=== PATIENT | male | born 1990 | race Caucasian/White ===

== ENCOUNTER 2020-02-24 21:31 | Emergency (ER) | payer OTHER ==
[~2020-02-24] VITALS: Ht 172.7 cm; Wt 86.2 kg
--- NOTE | 2020-02-24 21:35 | NUR ---
ED Nurse Note: Patient brought in by ambulance [id number] from [address] streets for possible overdose. Per EMS, pt was found unresponsive in his car with pinpoint pupils. EMS administered 4mg intranasal narcan and 2mg IV Narcan prior to arrival. Patient aao x 4 and ambulatory upon arrival. Patient VSS stable. EMS inserted 18g IV on Left AC prior to arrival, patent and flushing, blood drawn and sent to lab. No acute distress noted. [employer] at bedside.
[2020-02-24 21:45] VITALS: BP 131/64
--- NOTE | 2020-02-24 22:15 | Diagnostic Imaging Report ---
EXAM: CT Head Without Intravenous Contrast CLINICAL HISTORY: H/A TECHNIQUE: Axial computed tomography images of the head/brain without intravenous contrast. CTDI is 53.4 mGy and DLP is 993.2 mGy-cm. One or more of the following dose reduction techniques were used: automated exposure control, adjustment of the mA and/or kV according to patient size, use of iterative reconstruction technique. COMPARISON: No relevant prior studies available. FINDINGS: Brain: No hemorrhage. No edema. Ventricles: No ventriculomegaly. Bones/joints: No acute fracture. Soft tissues: Unremarkable. Sinuses: No acute sinusitis. Mastoid air cells: No mastoid effusion. IMPRESSION: No acute intracranial process.
[2020-02-24 22:17] LABS: ANION GAP 11 mmol/L (5-15); BASOPHILS % (AUTO) 1.2 % (0.0-2.0); BLOOD UREA NITROGEN 10 mg/dL (7-18); CALCIUM 8.3 MG/DL (8.5-10.1); CARBON DIOXIDE 28 MMOL/L (21-32); CHLORIDE 103 MMOL/L (98-107); CREATININE 1.3 MG/DL (0.55-1.30); EOSINOPHILS % (AUTO) 4.1 % (0.0-3.0); HEMATOCRIT 42.1 % (42.0-52.0); HEMOGLOBIN 15.3 G/DL (14.2-18.0); LYMPHOCYTES % (AUTO) 15.4 % (20.0-45.0); MEAN CORPUSCULAR VOLUME 85 FL (80-99); MONOCYTES % (AUTO) 5.4 % (1.0-10.0); PLATELET COUNT 276 K/UL (150-450); RED BLOOD COUNT 4.97 M/UL (4.70-6.10); RED CELL DISTRIBUTION WIDTH 12.4 % (11.6-14.8); SODIUM 142 MMOL/L (136-145)
[2020-02-24 22:21] LABS: ALANINE AMINOTRANSFERASE 45 U/L (12-78); ALBUMIN 4.2 G/DL (3.4-5.0); ALBUMIN/GLOBULIN RATIO 1.2 (1.0-2.7); ALKALINE PHOSPHATASE 59 U/L (46-116); ASPARTATE AMINO TRANSFERASE 20 U/L (15-37); BILIRUBIN,TOTAL 0.3 MG/DL (0.2-1.0)
--- NOTE | 2020-02-24 22:57 | NUR ---
ED Nurse Note: [employer] at bedside
--- NOTE | 2020-02-24 23:11 | NUR ---
ED Nurse Note: Urine collected.
[2020-02-24] MEDS ORDERED: NARCAN4 MG NS (23:21)
--- NOTE | 2020-02-24 23:21 | Emergency Room Report ---
History of Present Illness General Chief Complaint: Overdose Source: Patient Present Illness HPI 29-year-old male PMHx previous heroin/meth/marijuana abuse BIBA with PD with c/o AMS. Patient was found unresponsive in his car. Accucheck was normal. No signs of trauma. EMS gave narcan 6mg prior to arrival. Patient states that this has never happened to him before. States that he has anxiety and usually takes xanax that he gets "from a friend" which is not prescribed to him. Denies alcohol use. Denies RAMOS, photophobia, neck/back/chest/abd pain, nausea, vomiting, or other symptoms The patient's symptoms were gradual onset, severity was moderate, duration since 1 day. PD Quality: confused Past medical history: previous opiate dependence -- sober 2 years Past surgical history: childhood hernia repair Smoking: ++VAPE Alcohol use: [ Denies] Drug use: ++marijuan Review of systems: CONST: No fevers or chills, No night sweats PULMONARY: No productive cough, No shortness of breath CARDIAC: No chest pain, No palpitations GI: No vomiting, No diarrhea , No melena_or_BRBPR : No dysuria, No hematuria, No discharge NEURO: No new_focal_weakness_or_numbness, No confusion, No vision changes 14 point Review of Systems is otherwise negative except per HPI Physical Exam: GENERAL: Awake_alert_ nontoxic, no acute distress Spo2 100% on RA -normal EYES: Extraocular muscles are intact. Conjunctivae clear. Lids without swelling. No nystagmus ENT: External nose and ear normal_in_appearance. Oropharynx clear. Head_atraumatic, Moist_oral_mucosa NECK: No JVD. No meningismus. No thyromegaly. Supple. Trachea midline RESP: Normal respiratory effort. Symmetric rise. No stridor. Cl ear_to_auscultation_No_rales_No_wheezes CARDIAC: Tachy rate and regular rhytm. No_significant pedal edema. ABDOMEN: Soft. Nondistended. Nontender_No_rebound_or_guarding. MSK: Normal muscle tone, without rigidity. Extremities without asymmetric deformity or swelling. SKIN: Warm and dry. No visible cyanosis or pallor NEUROLOGIC: Alert, oriented x3. Motor_and_sensation_grossly_intact. No truncal ataxia. Gait_normal Psych: Normal mood and affect, normal judgment and insight - COORDINATION OF CARE Case was discussed with: Patient Any labs and imaging that were ordered were interpreted as part of the medical decision making: Medical Decision Making/Plan: Differential diagnosis includes delusions, paranoid schizophrenia, drug abuse, drug intoxication, drug overdose, among others. After receiving narcan, patient is AOx4, GCS 15. No neuro deficits. The patient denies any suicide attempt, overdose, or ingestion. They exhibit no signs of any toxic syndrome or drug / alcohol withdrawal. Labs were ordered for evaluation, and results are reassuring with no evidence of occult overdose, or severe metabolic derangement. UDS was positive for benzos and marijuana. Patient had increased WBC count, but suspect this is likely reactive 2/2 drug abuse. PD report filed. DMV report filed. CT head negative. The patient was observed for a period of time of 3-4 hrs in the ED with serial neurologic exams. After serial neurologic exams in the emergency department, the patient remains clinically sober. They have no focal neurologic deficits and were able to ambulate with a steady gait without assistance. The patients presentation seems to be consistent with Benzo diazepine overdose. Suspect concomitant synthetic opiate OD which is why he responded well to narcan given prior to arrival to ED. Patient was counseled not to take drugs off the street and seek official psych care. Will prescribe narcan to use in case of emergencies Pertinent results reviewed with the patient. I educated the patient on the current treatment plan including the risks, benefits, and alternatives. I also discussed the extent and limitations of the current evaluation. The patient expressed understanding and agreement with plan. I recommended PMD follow-up within 1-2 days. Also advised that the patient return to the Emergency Department as soon as possible if they experience any new, persistent, or worsening symptoms. 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 Rhythm: Sinus tachycardia Rate: 108 bpm QTc: 450 Morphology: No_significant_ST_elevations_or_depressions, No STEMI Impression: Sinus tachycardia. Normal axis. Normal intervals. Rhythm Strip Diag. Results Rhythm Strip Time: 23:43 EP Interpretation: yes Rate: 88 Rhythm: NSR, no PVC's, no ectopy CT/MRI/US Diagnostic Results CT/MRI/US Diagnostic Results : Impression CT Head Without Intravenous Contrast FINDINGS: Brain: No hemorrhage. No edema. Ventricles: No ventriculomegaly. Bones/joints: No acute fracture. Soft tissues: Unremarkable. Sinuses: No acute sinusitis. Mastoid air cells: No mastoid effusion. IMPRESSION: No acute intracranial process. Reevaluation Time: 00:50 Last Vital Signs Date Time Temp Pulse Resp B/P (MAP) Pulse Ox O2 Delivery O2 Flow Rate FiO2 02/24/20 21:45 98.2 102 13 131/64 100 Room Air Status: improved Reevaluation Impression Patient now clinically sober. ANO x4. No signs of trauma. No focal neurologic deficits. Disposition: HOME, SELF-CARE Admit Decision Time: 00:52 Condition: Stable Scripts Naloxone HCl (Narcan) 4 Mg Loco 4 MG NS ONCE for 1 Day, #1 SPRAY Prov: Dulce Maria Burkett D.O. 02/24/20 Referrals: [facility]ERR[facility] (PCP) Additional Instructions: Instructions for patient/bill clerk: Follow up with your physician in 1-2 days. Do not drink and drive. Do not take drugs that are not prescribed to you. Do not take drugs and drive. Follow-up with your doctor sooner if your condition requires a more timely clinical reevaluation. Return to the emergency department immediately if you feel that your condition is worsening or if you have any new or concerning symptoms. Review your discharge instructions and take any prescriptions given as instructed. [facility] PROVIDES FREE OR LOW-COST HEALTH SERVICES TO PEOPLE WHO CAN SHOW PROOF THAT THEY LIVE IN [facility]. TO FIND MORE CLINICS PARTNERED WITH [facility] TO PROVIDE SERVICE, PLEASE CALL . Dulce Maria Burkett D.O. Feb 24, 2020 23:21
[2020-02-24 23:33] LABS: APPEARANCE,URINE CLEAR; BILIRUBIN, URINE NEGATIVE (NEGATIVE); COLOR,URINE PALE YELLOW; GLUCOSE, URINE (UA) NEGATIVE (NEGATIVE); KETONES,URINE NEGATIVE (NEGATIVE); LEUKOCYTE ESTERASE ,URINE NEGATIVE (NEGATIVE); NITRITE,URINE NEGATIVE (NEGATIVE); PH,URINE 6 (4.5-8.0); PROTEIN,URINE 2+ (NEGATIVE); UROBILINOGEN,URINE NORMAL MG/DL (0.0-1.0)
[2020-02-25] MEDS ORDERED: Lidocaine 1% Plain 30 ml INJ ONE (00:34)
[2020-02-25 00:52] VITALS: BP 128/79
--- NOTE | 2020-02-25 00:52 | NUR ---
ER DISCHARGE NOTE: Patient is cleared to be discharged per ERMD, pt is aox4, on room air, with stable vital signs. pt was given dc and prescription instructions, pt was able to verbalize understanding, pt id band and iv site removed intact without complications. pt is able to ambulate with steady gait. pt took all belongings. pt provided weather appropriate clothing and shoes. pt stable upon discharge.
--- NOTE | 2020-02-26 13:02 | Cardiology Report ---
APPROVED REPORT EKG Measurement Heart [id number] <Conclusion> Sinus tachycardia Nonspecific T wave abnormality Abnormal ECG
== END 2020-02-25 00:52 | disposition home or self-care (01) ==
LOC: EDBD 21:31 → EMR 21:45
DX: T42.4X1A Poisoning by benzodiazepines, accidental (unintentional), initial encounter (principal); T40.7X1A Poisoning by cannabis (derivatives), accidental (unintentional), initial encounter; F41.9 Anxiety disorder, unspecified; F32.9 Major depressive disorder, single episode, unspecified; E87.6 Hypokalemia; Y92.810 Car as the place of occurrence of the external cause
CPT/HCPCS: 36415; 70450; 80053; 80307; 81003; 83735; 85025; 93005; 96361; 96374; G0480; G0481; J2405; J7030; Z7502; 99284; J8499